=== PATIENT | male | born 1950 | race African-American/Black ===

== ENCOUNTER 2022-03-29 11:49 | Inpatient (IN) | payer MEDICARE, OTHER ==
[2022-03-29 12:39] LABS: PTT 24.5 sec (22.0-33.0); Prothrombin Time 10.6 sec (9.5-12.1)
[2022-03-29 12:46] LABS: ALT (SGPT) 10 U/L (8-55); AST (SGOT) 16 U/L (5-34); Albumin 4.2 g/dL (3.4-4.8); Alkaline Phosphatase 60 U/L (40-110); Anion Gap 15 mmol/L (10-20); BUN (Urea Nitrogen) 10 mg/dL (8.4-25.7); Bilirubin, Total 0.7 mg/dL (0.2-1.2); Calc. Creatinine Clearance 0 mL/min (70-130); Calcium 9.2 mg/dL (7.8-10.44); Carbon Dioxide 23 mmol/L (23-31); Chloride 106 mmol/L (98-107); Estimated GFR 71; Globulin 3.2 g/dL (2.4-3.5); Glucose 135 mg/dL (80-115); Potassium 3.9 mmol/L (3.5-5.1); Protein, Total 7.4 g/dL (5.8-8.1); Sodium 140 mmol/L (136-145)
[2022-03-29 13:01] LABS: Bilirubin Neg (Negative); Blood, Urine 25 (Negative); Clarity Clear (Clear); Glucose, Urine (Dipstick) Normal (Negative); Ketone, Urine 5 mg/dL (Negative); Leukocyte 25 (Negative); Nitrite Negative (Negative); Protein, Urine (Dipstick) 30 mg/dl (Neg-Trace); Specific Gravity, Urine 1.015 (1.005-1.030)
[2022-03-29 13:07] LABS: CKMB 1.7 ng/mL (0-6.6)
[2022-03-29 13:10] LABS: #Eosinphils 0.1 10x3/uL (0.0-0.5); #Monocytes 0.6 10x3/uL (0.0-1.1); #Neutrophils 2.8 10x3/uL (1.5-8.4); %Basophils 0.3 % (0.0-2.0); %Eosinophils 1.3 % (0.0-6.0); %Lymphocytes 41.3 % (18.0-47.0); %Monocytes 9.5 % (0.0-10.0); %Neutrophils 47.3 % (40.0-75.0); Hemoglobin 16.1 g/dL (13.5-17.5); Mean Corpuscular HGB CONC 39.4 g/dL (32.0-36.0); Mean Corpuscular Hemoglobin 33.7 pg (27.0-33.0); Mean Corpuscular Volume 85.6 fl (81.2-95.1); Mean Platelet Volume 10.3 fl (7.4-10.4); Platelet Count 200 10x3/uL (150-450); RBC Distribution Width 14.2 % (11.5-14.5); Red Blood Cell (RBC) Count 4.78 10x6/uL (4.32-5.72)
[2022-03-29 13:20] LABS: SARS-CoV-2 NAA Rapid Test DETECTED (NotDetected)
[2022-03-29 13:20] LABS: Bacteria/HPF None Seen HPF (None Seen); Mucous/LPF Rare LPF (<2+); RBC/HPF 0-3 HPF (0-3); Squamous Epithelial 0-3 HPF (0-3); WBC/HPF 0-3 HPF (0-3)
[2022-03-29] MEDS ORDERED: Ondansetron PF 4 MG/2 ML Vial IVP PRN (13:59)
[2022-03-29] MEDS ORDERED: Senokot S 8.6-50 MG TAB PO PRN (13:59)
[2022-03-29] MEDS ORDERED: Ondansetron ODT 4 MG TAB PO PRN (13:59)
[2022-03-29] MEDS ORDERED: Sodium Chloride 0.9% 1,000 ML IV SCH ×2 (14:00→22:30)
[2022-03-29] MEDS ORDERED: Nicotine 14 MG PATCH TD SCH (14:00)
[2022-03-29] MEDS ORDERED: Nitroglycerin 2% Ointment 1 INCH/1 GM Packet TOP SCH (14:15)
[2022-03-29 18:49] VITALS: BMI 21.8
[2022-03-29] MEDS ORDERED: FLU VACC QS2022-23(65YR UP)/PF 240 MCG/0.7 ML SYRINGE IM ONE (19:30)
[2022-03-29] MEDS: Metoprolol Tartrate 25 MG TAB PO SCH (22:16)
[2022-03-29] MEDS: Nitroglycerin 2% Ointment 1 INCH/1 GM Packet TOP SCH (22:17)
[2022-03-30 02:13] LABS: Troponin I 4.278 ng/mL (< 0.028)
[2022-03-30 05:57] LABS: Anion Gap 12 mmol/L (10-20); BUN (Urea Nitrogen) 13 mg/dL (8.4-25.7); Calc. Creatinine Clearance 79 mL/min (70-130); Calcium 8.8 mg/dL (7.8-10.44); Carbon Dioxide 23 mmol/L (23-31); Cardiac Risk 3.6 (Less than 4.5); Chloride 109 mmol/L (98-107); Cholesterol 175 mg/dl (< 200 Desired); Estimated GFR 94; Glucose 102 mg/dL (80-115); HDL Cholesterol 49 mg/dL (>60 Neg Risk); LDL Cholesterol, Calculated 108 mg/dL; Sodium 140 mmol/L (136-145); Triglycerides 92 mg/dL (Less than 150)
[2022-03-30 06:17] LABS: #Monocytes 0.8 10x3/uL (0.0-1.1); #Neutrophils 4.4 10x3/uL (1.5-8.4); %Basophils 0.3 % (0.0-2.0); %Eosinophils 0.4 % (0.0-6.0); %Lymphocytes 28.9 % (18.0-47.0); %Monocytes 11.1 % (0.0-10.0); Hemoglobin 13.5 g/dL (13.5-17.5); Mean Corpuscular HGB CONC 37.5 g/dL (32.0-36.0); Mean Corpuscular Hemoglobin 32.5 pg (27.0-33.0); Mean Corpuscular Volume 86.7 fl (81.2-95.1); Mean Platelet Volume 10.3 fl (7.4-10.4); Platelet Count 207 10x3/uL (150-450); RBC Distribution Width 14.1 % (11.5-14.5); Red Blood Cell (RBC) Count 4.15 10x6/uL (4.32-5.72); White Blood Cell (WBC) Count 7.8 10x3/uL (3.5-10.5)
[2022-03-30] MEDS ORDERED: Iopamidol 300 61% 100 ML VIAL FS ONE (10:03)
[2022-03-30] MEDS: Metoprolol Tartrate 25 MG TAB PO SCH (10:04)
[2022-03-30] MEDS: Lisinopril 5 MG TAB PO SCH (10:05)
[2022-03-30] MEDS: Aspirin Chewable 81 MG TAB PO SCH (10:05)
[2022-03-30] MEDS: Ascorbic Acid 500 mg Chewable Tablet PO SCH (10:05)
[2022-03-30] MEDS: Nitroglycerin 2% Ointment 1 INCH/1 GM Packet TOP SCH ×3 (10:06→21:13)
[2022-03-30 11:37] LABS: CKMB 123.6 ng/mL (0-6.6)
[2022-03-30] MEDS ORDERED: Clopidogrel Bisulfate 75 MG TAB PO SCH (11:51)
[2022-03-30 12:55] LABS: Troponin I 15.597 ng/mL (< 0.028)
[2022-03-30 13:04] LABS: Hemoglobin A1c 5.2 % (4.0-6.0)
[2022-03-30] MEDS: Nitroglycerin 50 MG/250 ML BOT 250 ML IVPB SCH ×2 (13:51→20:01)
[2022-03-30] MEDS ORDERED: Nitroglycerin 50 MG/250 ML BOT 0 ML ONE (13:56)
[2022-03-30] MEDS ORDERED: Heparin 10,000 UNITS/ 10 ML VIAL ONE (13:56)
[2022-03-30] MEDS ORDERED: Adenosine 6 MG/2 ML VIAL ONE (13:57)
[2022-03-30] MEDS ORDERED: Sodium Chloride 0.9% 1,000 ML ONE (13:58)
[2022-03-30] MEDS ORDERED: Fentanyl 100 MCG/2 ML VIAL ONE (13:58)
[2022-03-30] MEDS ORDERED: Midazolam HCl 2 mg/2 ml Vial ONE (13:59)
[2022-03-30] MEDS ORDERED: Lidocaine 1% (PF) 30 ML VIAL ONE (14:03)
[2022-03-30] MEDS ORDERED: Atropine Sulfate 0.4 mg/1 ml Vial ONE (14:39)
[2022-03-30] MEDS: Zinc Sulfate 220 MG CAP PO SCH (17:28)
[2022-03-30] MEDS: Acetaminophen 325 MG TAB PO PRN ×2 (18:23→22:07)
[2022-03-30] MEDS: Atorvastatin Calcium 40 MG TAB PO SCH (21:13)
[2022-03-31 03:58] LABS: CRP (Inflammatory) 3.66 mg/dL (= or < 0.5)
[2022-03-31 04:05] LABS: ALT (SGPT) 30 U/L (8-55); AST (SGOT) 150 U/L (5-34); Albumin 3.6 g/dL (3.4-4.8); Alkaline Phosphatase 50 U/L (40-110); Anion Gap 15 mmol/L (10-20); BUN (Urea Nitrogen) 9 mg/dL (8.4-25.7); Bilirubin, Total 1.1 mg/dL (0.2-1.2); Calc. Creatinine Clearance 82 mL/min (70-130); Calcium 8.6 mg/dL (7.8-10.44); Carbon Dioxide 20 mmol/L (23-31); Chloride 107 mmol/L (98-107); Estimated GFR 95; Globulin 2.9 g/dL (2.4-3.5); Glucose 101 mg/dL (80-115); Potassium 3.5 mmol/L (3.5-5.1); Protein, Total 6.5 g/dL (5.8-8.1); Sodium 138 mmol/L (136-145)
[2022-03-31 04:23] LABS: #Eosinphils 0.1 10x3/uL (0.0-0.5); #Monocytes 1.4 10x3/uL (0.0-1.1); #Neutrophils 5.5 10x3/uL (1.5-8.4); %Basophils 0.3 % (0.0-2.0); %Eosinophils 0.5 % (0.0-6.0); %Lymphocytes 31.5 % (18.0-47.0); %Neutrophils 53.4 % (40.0-75.0); Hemoglobin 13.5 g/dL (13.5-17.5); Mean Corpuscular Hemoglobin 32.5 pg (27.0-33.0); Mean Corpuscular Volume 85.8 fl (81.2-95.1); Mean Platelet Volume 9.9 fl (7.4-10.4); Platelet Count 187 10x3/uL (150-450); RBC Distribution Width 14.1 % (11.5-14.5); Red Blood Cell (RBC) Count 4.15 10x6/uL (4.32-5.72); White Blood Cell (WBC) Count 10.3 10x3/uL (3.5-10.5)
[2022-03-31 04:39] LABS: CKMB 78.8 ng/mL (0-6.6)
[2022-03-31 05:47] LABS: Mean Corpuscular HGB CONC 37.7 g/dL (32.0-36.0)
[2022-03-31] MEDS: Aspirin Chewable 81 MG TAB PO SCH (07:45)
[2022-03-31] MEDS: Lisinopril 5 MG TAB PO SCH (07:45)
[2022-03-31] MEDS: Zinc Sulfate 220 MG CAP PO SCH (07:45)
[2022-03-31] MEDS: Ascorbic Acid 500 mg Chewable Tablet PO SCH (07:45)
[2022-03-31] MEDS: Nitroglycerin 2% Ointment 1 INCH/1 GM Packet TOP SCH (07:46)
[2022-03-31] MEDS ORDERED: Potassium Chloride 20 MEQ TAB PO SCH (11:00)
[2022-03-31] MEDS ORDERED: Electrolyte Replacement Protocol 1 EACH FS PRN (11:00)
[2022-03-31] MEDS ORDERED: Magnesium 2 GM/50 ML(in water) 2 GM in Premix Bag 1 BAG IVPB SCH (11:30)
[2022-03-31] MEDS ORDERED: Clopidogrel Bisulfate 75 MG TAB PO SCH (12:00)
[2022-03-31] MEDS: Atorvastatin Calcium 40 MG TAB PO SCH (20:39)
[2022-04-01 04:05] LABS: #Eosinphils 0.1 10x3/uL (0.0-0.5); #Monocytes 1.5 10x3/uL (0.0-1.1); #Neutrophils 4.6 10x3/uL (1.5-8.4); %Basophils 0.3 % (0.0-2.0); %Monocytes 14.4 % (0.0-10.0); %Neutrophils 45.1 % (40.0-75.0); Mean Corpuscular HGB CONC 36.9 g/dL (32.0-36.0); Mean Corpuscular Hemoglobin 31.9 pg (27.0-33.0); Mean Corpuscular Volume 86.5 fl (81.2-95.1); Platelet Count 181 10x3/uL (150-450); RBC Distribution Width 13.7 % (11.5-14.5); Red Blood Cell (RBC) Count 4.07 10x6/uL (4.32-5.72); White Blood Cell (WBC) Count 10.3 10x3/uL (3.5-10.5)
[2022-04-01 04:06] LABS: ALT (SGPT) 25 U/L (8-55); AST (SGOT) 76 U/L (5-34); Albumin 3.4 g/dL (3.4-4.8); Alkaline Phosphatase 47 U/L (40-110); Anion Gap 14 mmol/L (10-20); BUN (Urea Nitrogen) 11 mg/dL (8.4-25.7); Calc. Creatinine Clearance 80 mL/min (70-130); Calcium 8.5 mg/dL (7.8-10.44); Carbon Dioxide 21 mmol/L (23-31); Chloride 106 mmol/L (98-107); Estimated GFR 95; Globulin 2.8 g/dL (2.4-3.5); Glucose 88 mg/dL (80-115); Magnesium 1.9 mg/dL (1.6-2.6); Phosphorus 2.1 mg/dL (2.3-4.7); Potassium 3.7 mmol/L (3.5-5.1); Protein, Total 6.2 g/dL (5.8-8.1); Sodium 137 mmol/L (136-145)
[2022-04-01 04:37] VITALS: TEMP 99.3
[2022-04-01] MEDS ORDERED: Magnesium 2 GM/50 ML(in water) 2 GM in Premix Bag 1 BAG IVPB SCH (06:00)
[2022-04-01] MEDS: Ascorbic Acid 500 mg Chewable Tablet PO SCH (08:29)
[2022-04-01] MEDS: Zinc Sulfate 220 MG CAP PO SCH (08:29)
[2022-04-01 08:30] VITALS: BP 132/95
[2022-04-01] MEDS: Aspirin Chewable 81 MG TAB PO SCH (08:30)
[2022-04-01] MEDS: Lisinopril 5 MG TAB PO SCH (08:30)
[2022-04-01] MEDS ORDERED: Clopidogrel Bisulfate 75 MG TAB PO SCH (09:00)
== END 2022-04-01 11:30 | disposition home or self-care (01) | DRG 246 ==
LOC: CSHERS 11:49 → INTOOBSV 13:16 → CSHTELE 13:16 → CSHICU 03-30 15:00 → OBSVTOIN 03-30 19:36
PROVIDERS: ADMIT Internal Medicine; ATTEND Internal Medicine
PROC: 027036Z Dilation of Coronary Artery, One Artery with Three Drug-eluting Intraluminal Devices, Percutaneous Approach (ICD-10-PCS; principal; 2022-03-30)
PROC: 4A023N7 Measurement of Cardiac Sampling and Pressure, Left Heart, Percutaneous Approach (ICD-10-PCS; 2022-03-30)
PROC: B2111ZZ Fluoroscopy of Multiple Coronary Arteries using Low Osmolar Contrast (ICD-10-PCS; 2022-03-30)
PROC: B2151ZZ Fluoroscopy of Left Heart using Low Osmolar Contrast (ICD-10-PCS; 2022-03-30)
PROC: B240ZZ3 Ultrasonography of Single Coronary Artery, Intravascular (ICD-10-PCS; 2022-03-30)
PROC: 8E0ZXY6 Isolation (ICD-10-PCS; 2022-03-30)
DX: I21.19 ST elevation (STEMI) myocardial infarction involving other coronary artery of inferior wall (principal); U07.1 COVID-19; F17.210 Nicotine dependence, cigarettes, uncomplicated; I10 Essential (primary) hypertension; R73.9 Hyperglycemia, unspecified; I25.10 Atherosclerotic heart disease of native coronary artery without angina pectoris; D64.9 Anemia, unspecified; E78.5 Hyperlipidemia, unspecified; E87.6 Hypokalemia; E83.42 Hypomagnesemia; Z98.890 Other specified postprocedural states; Z87.828 Personal history of other (healed) physical injury and trauma
CPT/HCPCS: 36415; 71045; 80048; 80053; 80061; 81003; 81015; 82550; 82553; 83036; 83735; 84100; 84484; 85025; 85610; 85730; 86140; 87086; 92928; 92978; 93005; 93010; 93306; 93458; 94760; 96372; C1753; C1769; C1874; C1887; C9600; G0378; J0153; J0461; J1644; J1650; J2001; J2250; J3010; J3475; J7050; Q9967; U0002